=== PATIENT | male | born 1935 | race Caucasian/White ===

== ENCOUNTER → 2016-10-28 | Outpatient (CLI) | payer OTHER, MEDICARE | LOC: FIMAGING 11:10 | PROVIDERS: ATTEND Internal Medicine | DX: M16.0 Bilateral primary osteoarthritis of hip (principal) ==

== ENCOUNTER → 2017-06-09 | Outpatient (CLI) | payer OTHER, MEDICARE | LOC: FIMAGING 12:23 | DX: M11.261 Other chondrocalcinosis, right knee (principal) ==